=== PATIENT | female | born 1980 | race Caucasian/White ===

== ENCOUNTER 2018-07-31 09:51 | Emergency (ER) | payer OTHER ==
[~2018-07-31] VITALS: Ht 167.6 cm; Wt 80.3 kg
[~2018-07-31 09:51] MED LIST: CIPRO500 MG PO; FLAGYL500MG PO; INTESTINEX680 MG PO; ZANTAC150 MG PO
[2018-07-31] MEDS ORDERED: PROTONIX20 MG (10:31)
== END 2018-07-31 16:14 | disposition home or self-care (01) ==
LOC: EMR PED 09:51 → ER 10:00
DX: O26.892 Other specified pregnancy related conditions, second trimester (principal); K52.89 Other specified noninfective gastroenteritis and colitis; Z34.02 Encounter for supervision of normal first pregnancy, second trimester

== ENCOUNTER 2018-12-09 13:49 | Inpatient (IN) | payer OTHER ==
[~2018-12-09] VITALS: Ht 170.2 cm; Wt 3.6 kg
[~2018-12-09 13:49] MED LIST changes: +PROTONIX20 MG
[2019-01-01] MEDS ORDERED: PRENATAL 19 TA1 EAC1 PO (06:45)
== END 2019-01-04 15:13 | disposition home or self-care (01) | DRG 788 ==
LOC: SURH 13:49 → LDR 01-01 06:26 → SURG-SUITE 01-01 06:26 → OB/GYN 01-01 14:00 → SURG-SUITE 01-01 22:14
PROVIDERS: ADMIT Specialist
PROC: 10907ZC Drainage of Amniotic Fluid, Therapeutic from Products of Conception, Via Natural or Artificial Opening (ICD-10-PCS; 2019-01-01)
PROC: 3E033VJ Introduction of Other Hormone into Peripheral Vein, Percutaneous Approach (ICD-10-PCS; 2019-01-01)
PROC: 4A1HXCZ Monitoring of Products of Conception, Cardiac Rate, External Approach (ICD-10-PCS; 2019-01-01)
PROC: 10D00Z1 Extraction of Products of Conception, Low, Open Approach (ICD-10-PCS; principal; 2019-01-01 20:00)
DX: O82 Encounter for cesarean delivery without indication (principal); O65.4 Obstructed labor due to fetopelvic disproportion, unspecified; O14.14 Severe pre-eclampsia complicating childbirth; Z3A.40 40 weeks gestation of pregnancy; Z37.0 Single live birth; Z22.330 Carrier of Group B streptococcus

== ENCOUNTER 2020-10-13 11:00 | Inpatient (IN) | payer OTHER ==
[~2020-10-13] VITALS: Ht 167.6 cm; Wt 90.7 kg
[~2020-10-13 11:00] MED LIST changes: +PRENATAL 19 TA1 EAC1 PO
[2020-10-13] MEDS ORDERED: CHILDREN'S ASPI81 MG PO (11:33)
== END 2020-10-15 12:37 | disposition home or self-care (01) | DRG 831 ==
LOC: LDR 11:00 → OB/GYN 10-14 11:45
PROVIDERS: ADMIT Specialist; ATTEND Specialist
PROC: 4A1HXFZ Monitoring of Products of Conception, Cardiac Rhythm, External Approach (ICD-10-PCS; principal; 2020-10-13)
PROC: BY4FZZZ Ultrasonography of Third Trimester, Single Fetus (ICD-10-PCS; 2020-10-13)
DX: O47.03 False labor before 37 completed weeks of gestation, third trimester (principal); O98.513 Other viral diseases complicating pregnancy, third trimester; U07.1 COVID-19; O34.211 Maternal care for low transverse scar from previous cesarean delivery; Z3A.36 36 weeks gestation of pregnancy

== ENCOUNTER 2020-10-19 11:31 | Inpatient (IN) | payer OTHER ==
[~2020-10-19] VITALS: Ht 167.6 cm; Wt 2.7 kg
[~2020-10-19 11:31] MED LIST changes: +CHILDREN'S ASPI81 MG PO
[2020-10-19] MEDS ORDERED: PRESERVISION L1 EACH PO (11:57)
[2020-10-19] MEDS ORDERED: OSTERA TABLET1 EACH PO (11:58)
[2020-10-19] MEDS ORDERED: FOLIC ACID20 MG PO (11:58)
[2020-10-19] MEDS ORDERED: NIFEDIPINE20 MG PO (11:59)
== END 2020-10-22 14:29 | disposition home or self-care (01) | DRG 788 ==
LOC: LDR 11:31 → SURG-SUITE 11:31
PROVIDERS: ADMIT Specialist; ATTEND Specialist
PROC: 4A1HXFZ Monitoring of Products of Conception, Cardiac Rhythm, External Approach (ICD-10-PCS; 2020-10-19)
PROC: 10D00Z1 Extraction of Products of Conception, Low, Open Approach (ICD-10-PCS; principal; 2020-10-19 14:00)
DX: O34.211 Maternal care for low transverse scar from previous cesarean delivery (principal); O99.824 Streptococcus B carrier state complicating childbirth; Z3A.37 37 weeks gestation of pregnancy; Z37.0 Single live birth; Z86.16 Personal history of COVID-19